=== PATIENT | female | born 1990 | race American Indian/Alaskan Native ===

== ENCOUNTER 2021-02-24 08:00 | Outpatient (CLI) | payer OTHER | END 2021-02-24 08:30 | disposition home or self-care (01) | LOC: PPH VACUNA 08:00 | DX: Z23 Encounter for immunization (principal) ==

== ENCOUNTER 2021-03-17 08:00 | Outpatient (CLI) | payer OTHER | END 2021-03-17 08:30 | disposition home or self-care (01) | LOC: PPH VACUNA 08:00 | PROVIDERS: ATTEND Emergency Medicine Pediatric Emergency Medicine | DX: Z23 Encounter for immunization (principal) ==

== ENCOUNTER 2021-05-07 11:30 | Inpatient (IN) | payer OTHER ==
[~2021-05-07] VITALS: Ht 157.5 cm; Wt 73.5 kg
[2021-05-15] MEDS ORDERED: PRENATAL CAPLE1 EAC1 PO (12:22)
[2021-05-15] MEDS ORDERED: FOLIC ACID20 MG PO (12:22)
== END 2021-05-17 15:59 | disposition home or self-care (01) | DRG 807 ==
LOC: LDR 05-15 11:08 → SURH 05-16 15:00 → OB/GYN 05-16 16:26 → LDR 05-16 16:31 → OB/GYN 05-16 16:57
PROVIDERS: ADMIT Obstetrics & Gynecology; ATTEND Obstetrics & Gynecology
PROC: 10E0XZZ Delivery of Products of Conception, External Approach (ICD-10-PCS; principal; 2021-05-15)
PROC: 4A1HXFZ Monitoring of Products of Conception, Cardiac Rhythm, External Approach (ICD-10-PCS; 2021-05-15)
DX: O99.284 Endocrine, nutritional and metabolic diseases complicating childbirth (principal); E03.9 Hypothyroidism, unspecified; Z37.0 Single live birth; Z3A.39 39 weeks gestation of pregnancy

== ENCOUNTER 2024-01-10 08:13 | Outpatient (CLI) | payer OTHER ==
[~2024-01-10 08:13] MED LIST: DICLOFENAC POTA50 MG PO; FOLIC ACID20 MG PO; PRENATAL CAPLE1 EAC1 PO
== END 2024-01-10 08:18 | disposition home or self-care (01) ==
LOC: RAD 08:13
PROVIDERS: ATTEND Orthopaedic Surgery
DX: S82.64XA Nondisplaced fracture of lateral malleolus of right fibula, initial encounter for closed fracture (principal)